=== PATIENT | female | born 1965 | race Caucasian/White ===

== ENCOUNTER 2022-09-10 14:34 | Outpatient (CLI) | payer BC, SELFPAY ==
--- NOTE | 2022-09-10 14:40 | CRLHL7_ITS ---
For Patients: As a result of the Century Cures Act, medical imaging exams and procedure reports are released immediately into your electronic medical record. You may view this report before your referring provider. If you have questions, please contact your health care provider. BILATERAL SCREENING MAMMOGRAM WITH COMPUTER-AIDED DETECTION AND TOMOSYNTHESIS TECHNIQUE: CC and MLO views were obtained. These mammographic images have been obtained using full-field digital technique. These mammographic images were interpreted with the benefit of computer-aided detection. Breast tomosynthesis was used in this interpretation. COMPARISON FILM: 01/25/20, 09/12/18, 03/20/17. FINDINGS: There are scattered areas of fibroglandular density. IMPRESSION: There is no radiographic evidence for malignancy. ASSESSMENT: BI-RADS Category 1: Negative RECOMMENDATION: Routine screening mammogram in 1 year. A lay language report of this examination will be provided to the patient. RAFI OLVERA M.D. Diagnostic Radiologist [email or web address] Transcribed: 3:[address]/Dictated by: Rafi Olvera MD @ 09/11/2022 11:31:00 AM (Electronically Signed)
== END 2022-09-10 14:35 | disposition home or self-care (01) ==
LOC: MAMMO 14:35
PROVIDERS: PCP Physician Assistant Medical; Visit Provider Physician Assistant Medical
DX: Z12.31 Encounter for screening mammogram for malignant neoplasm of breast (principal)
CPT/HCPCS: 77063; 77067

== ENCOUNTER 2022-09-11 08:19 | Outpatient (CLI) | payer BC, SELFPAY | END 2022-09-11 08:20 | disposition home or self-care (01) | LOC: NFLDREF 21:53 | PROVIDERS: PCP Physician Assistant Medical; Referring Provider Physician Assistant Medical; Visit Provider Physician Assistant Medical | DX: E03.9 Hypothyroidism, unspecified (principal); E78.5 Hyperlipidemia, unspecified | CPT/HCPCS: 80053; 80061; 84443 ==

== ENCOUNTER 2022-09-12 07:16 | Outpatient (CLI) | payer BC, SELFPAY | END 2022-09-12 07:17 | disposition home or self-care (01) | LOC: FRMREF 07:16 | PROVIDERS: PCP Physician Assistant Medical; Visit Provider Physician Assistant Medical | DX: R73.9 Hyperglycemia, unspecified (principal) | CPT/HCPCS: 83036 ==

== ENCOUNTER 2022-09-14 14:00 | Outpatient (CLI) | payer BC, SELFPAY ==
--- NOTE | 2022-09-14 14:00 | CRLHL7_ITS ---
For Patients: As a result of the Century Cures Act, medical imaging exams and procedure reports are released immediately into your electronic medical record. You may view this report before your referring provider. If you have questions, please contact your health care provider. INDICATION: Cholesteatoma. TECHNIQUE: Noncontrast CT images acquired through the temporal bones. COMPARISON: CT temporal bones 09/12/2018. FINDINGS: Right side: Postsurgical changes of interval canal wall up mastoidectomy. The mastoid bowl is well aerated. The external auditory canal is widely patent. Thickened tympanic membrane may be secondary to tympanoplasty. 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 The malleus and incus are absent. Soft tissue attenuation within the epitympanum measuring up to 8 mm. The middle ear cavity is otherwise well aerated. No evidence for otosclerosis. Normal morphology of the inner ear structures. No semicircular canal dehiscence. Left Side: The external auditory canal is widely patent. The tympanic membrane is faintly visualized. The middle ear cavity is clear. The ossicles and scutum are intact. No evidence for otosclerosis. Normal morphology of the inner ear structures. No semicircular canal dehiscence. The mastoid air cells are clear. IMPRESSION: Right side: 1. Soft tissue attenuation within the epitympanum is nonspecific, though raises the possibility of cholesteatoma. The middle ear cavity is otherwise well aerated. 2. Ossicular prosthesis extending from the tympanic membrane to the stapes capitulum. 3. Postsurgical changes secondary to interval right canal wall up mastoidectomy. The mastoid bowl is well aerated. Left Side: 1. Unremarkable. Please note that all CT scans at this facility use dose modulation, iterative reconstruction, and/or weight-based dosing when appropriate to reduce radiation dose to as low as reasonably achievable. Dictated by Raymond Ledesma MD @ 09/15/2022 11:37:48 AM (Electronically Signed)
== END 2022-09-14 14:01 | disposition home or self-care (01) ==
LOC: CT 14:02
PROVIDERS: PCP Physician Assistant Medical; Visit Provider Otolaryngology
DX: H71.90 Unspecified cholesteatoma, unspecified ear (principal); H92.09 Otalgia, unspecified ear
CPT/HCPCS: 70480

== ENCOUNTER 2022-12-18 07:29 | Outpatient (CLI) | payer BC, SELFPAY | END 2022-12-18 07:30 | disposition home or self-care (01) | LOC: NFLDREF 12-19 13:54 | PROVIDERS: PCP Physician Assistant Medical; Referring Provider Physician Assistant Medical; Visit Provider Physician Assistant Medical | DX: E78.2 Mixed hyperlipidemia (principal) | CPT/HCPCS: 80061; 84450; 84460 ==

== ENCOUNTER 2023-09-18 07:55 | Outpatient (CLI) | payer BC, SELFPAY | END 2023-09-18 07:56 | disposition home or self-care (01) | LOC: NFLDREF 09-22 06:36 | PROVIDERS: PCP Physician Assistant Medical; Referring Provider Physician Assistant Medical; Visit Provider Physician Assistant Medical | DX: E03.9 Hypothyroidism, unspecified (principal); E78.2 Mixed hyperlipidemia; R73.03 Prediabetes | CPT/HCPCS: 80053; 80061; 84443 ==

== ENCOUNTER 2024-01-03 13:02 | Outpatient (CLI) | payer BC, SELFPAY | END 2024-01-03 13:03 | disposition home or self-care (01) | LOC: LKVREF 13:03 | PROVIDERS: PCP Physician Assistant Medical; Visit Provider Physician Assistant Medical | DX: E03.9 Hypothyroidism, unspecified (principal) | CPT/HCPCS: 84439; 84443 ==

== ENCOUNTER 2024-03-23 09:21 | Outpatient (CLI) | payer BC, SELFPAY | END 2024-03-23 09:22 | disposition home or self-care (01) | LOC: NFLDREF 03-26 06:45 | PROVIDERS: PCP Physician Assistant Medical; Referring Provider Physician Assistant Medical; Visit Provider Family Medicine | DX: R53.83 Other fatigue (principal); E03.9 Hypothyroidism, unspecified; I10 Essential (primary) hypertension; R79.89 Other specified abnormal findings of blood chemistry; E78.5 Hyperlipidemia, unspecified; F41.9 Anxiety disorder, unspecified | CPT/HCPCS: 80076; 84443 ==

== ENCOUNTER 2024-06-12 10:54 | Outpatient (CLI) | payer BC, SELFPAY | END 2024-06-12 10:55 | disposition home or self-care (01) | LOC: NFLDREF 06-17 00:40 | PROVIDERS: PCP Family Medicine; Referring Provider Family Medicine; Visit Provider Family Medicine | DX: E11.9 Type 2 diabetes mellitus without complications (principal); E03.9 Hypothyroidism, unspecified; E78.2 Mixed hyperlipidemia; I10 Essential (primary) hypertension | CPT/HCPCS: 82043; 82570 ==

== ENCOUNTER 2024-10-15 08:29 | Outpatient (CLI) | payer BC, SELFPAY | END 2024-10-15 08:30 | disposition home or self-care (01) | LOC: NFLDREF 10-17 04:18 | PROVIDERS: PCP Family Medicine; Referring Provider Family Medicine; Visit Provider Family Medicine | DX: R53.83 Other fatigue (principal); E11.9 Type 2 diabetes mellitus without complications; E03.9 Hypothyroidism, unspecified; E78.2 Mixed hyperlipidemia; I10 Essential (primary) hypertension; R79.89 Other specified abnormal findings of blood chemistry | CPT/HCPCS: 80053; 80061; 84443 ==

== ENCOUNTER 2025-04-12 08:45 | Outpatient (CLI) | payer BC, SELFPAY | END 2025-04-12 08:46 | disposition home or self-care (01) | LOC: NFLDREF 04-16 06:19 | PROVIDERS: PCP Family Medicine; Referring Provider Family Medicine; Visit Provider Family Medicine | DX: I10 Essential (primary) hypertension (principal); E78.2 Mixed hyperlipidemia; G47.00 Insomnia, unspecified; E03.9 Hypothyroidism, unspecified; R53.83 Other fatigue | CPT/HCPCS: 80053; 80061 ==